=== PATIENT | male | born 1940 | race Caucasian/White ===

== ENCOUNTER 2017-01-23 02:01 | Emergency (ER) | payer MEDICARE, OTHER ==
[2017-01-23] MEDS ORDERED: ASPIRIN 81 MG TAB.CHEW ONE (02:08)
--- NOTE | 2017-01-23 02:11 | ERNOTE ---
Medical Problem HPI - General Time Seen by Provider: 01/23/17 02:08 Source: patient Exam Limitations: no limitations - Immun/Allergies/Home Medications Allergies/Adverse Reactions: Allergies iodine Allergy (Severe, Verified 01/23/17 02:16) Hives Home Medications: HOME MEDICATIONS Carvedilol [Coreg] 12.5 mg PO BID 01/16/15 [Last Taken Unknown] Digoxin [Lanoxin] 0.25 mg PO DAILY 01/16/15 [Last Taken Unknown] Lisinopril/Hydrochlorothiazide [Lisinopril-Hctz 20-12.5 mg Tab] 1 each PO DAILY 01/16/15 [Last Taken Unknown] Simvastatin [Zocor] 20 mg PO HS 01/16/15 [Last Taken Unknown] Warfarin Sodium [Coumadin] 5 mg PO DAILY 01/16/15 [Last Taken 03/12/16] Multivitamins [Multivitamin Stephanie] 1 cap PO DAILY 03/15/16 [Last Taken Unknown] Nitroglycerin [Nitrostat] 0.4 mg SL [id number] PRN 03/15/16 [Last Taken Unknown] - History of Present History Narrative: Patient presents to the emergency room via private vehicle for having had shortness of breath for the past 20 minutes. Patient states that he was sleeping and suddenly felt as if he stopped breathing. Since then he has felt short of breath. He also states that he has chest pains in the left upper chest region. He denies any radiation of this pain and he quantifies the pain as 3 out of 10. Significant history of coronary artery disease with multiple stents placed in 1997. He also has a defibrillator and states that he has not felt his defibrillator fire. Review of Systems - Review of Systems Constitutional: Present: no symptoms reported EYE: Present: no symptoms reported ENT: Present: no symptoms reported Respiratory: Present: See HPI Cardiology: Present: See HPI Gastrointestinal/Abdominal: Present: no symptoms reported Genitourinary: Present: no symptoms reported Musculoskeletal: Present: no symptoms reported Skin: Present: no symptoms reported Physical Exam - Physical Exam General Appearance: Present: wd/wn, alert, no apparent distress Ears, Nose, Throat: Present: normal ENT inspection Neck: Present: normal inspection Respiratory: Present: no respiratory distress, normal breath sounds, no accessory muscle use, chest nontender, lungs clear Cardiovascular/Chest: Present: regular rate, rhythm, no murmur, normal peripheral pulses Gastrointestinal/Abdominal: Present: normal bowel sounds, nontender, soft ED Progress - Results and Orders Patient's Lab Results:: I have reviewed the patient's lab results. - Vital Signs Patient's Vital Signs:: I have reviewed the patient's vital signs. - EKG EKG Comments: Jese moran - X-Ray X-Ray #1 X-Ray: chest Plan - Plan Plan: Patient's chest x-ray is normal, his EKG reveals atrial fibrillation, and has resolved with one nitroglycerin. He was given 325 mg of aspirin by mouth, troponin was 0.437. Pt desires to go to a facility where his heel finisher, Dr. Villarreal is. Dr. Thibodeaux at [facility], ED was consulted regarding this patient with possible NSTEMI/[place]. Patient was accepted to [facility] and he was transported via ground transportation to [facility] he remained chest pain-free and our ER and he was stable and appropriate for transfer. Departure - Departure Clinical Impression: NSTEMI (non-ST elevated myocardial infarction) Disposition: [facility] Condition: Fair Referrals: Gaudencio Aguilar DO [Primary Care Provider] -
[2017-01-23 02:27] LABS: Hematocrit 43.4 % (42.0-52.0); Hemoglobin 14.3 gm/dL (13.5-18.0); Mean Cell Volume 85.6 fl (78-100); Mean Corpuscular Hemoglobin 28.2 pg (27-31); Mean Corpuscular Hgb Conc 32.9 g/dl (32-36); Mean Platelet Volume 9.7 fl (6.0-9.5); Neutrophil # 5.2 K/mm3 (1.3-6.0); Neutrophil % 66.7 % (42-75.0); Platelet Count 307 K/mm3 (150-450); Red Blood Count 5.07 M/mm3 (4.7-6.0); Red Cell Distribution Width 15.3 % (11.5-14.0); White Blood Count 7.7 K/mm3 (4.0-10.5)
[2017-01-23 02:51] LABS: Albumin * 3.2 gm/dl (3.4-5.0); BUN/Creatinine Ratio 9.7 (9.0-21.6); Bilirubin, Total 0.4 mg/dL (0.0-1.1); CKMB 1.3 ng/mL (0.0-9.0); Ca. Corrected For Albumin 8.4 mg/dL (8.4-10.2); Calcium * 8.1 mg/dL (7.9-10.9); Carbon Dioxide 26.8 mmol/L (24-32.6); Potassium 3.8 mmol/L (3.4-4.6); Total Protein 6.4 gm/dL (6.2-8.2)
[2017-01-23 02:52] LABS: Troponin I 0.437 ng/ml (0.00-0.10)
[2017-01-23] MEDS ORDERED: CLONIDINE HCL 0.1 MG TABLET ONE (03:50)
[2017-01-23] MEDS ORDERED: CLONIDINE HCL 0.1 MG TABLET PO ONE (03:51)
[2017-01-23] MEDS ORDERED: MORPHINE SULFATE 2 MG/ML DISP.SYRIN ONE (03:58)
[2017-01-23] MEDS ORDERED: MORPHINE SULFATE 2 MG/ML DISP.SYRIN IV ONE (03:58)
[2017-01-23] MEDS ORDERED: LABETALOL HCL 5 MG/ML VIAL IV ONE ×2 (03:58→03:59)
[2017-01-23 04:08] VITALS: BP 178/90
== END 2017-01-23 04:09 | disposition short-term general hospital (02) ==
LOC: ER 02:01
DX: I21.4 Non-ST elevation (NSTEMI) myocardial infarction (principal); I25.10 Atherosclerotic heart disease of native coronary artery without angina pectoris; Z95.5 Presence of coronary angioplasty implant and graft; Z95.810 Presence of automatic (implantable) cardiac defibrillator; I48.91 Unspecified atrial fibrillation; I10 Essential (primary) hypertension; R51 Headache

== ENCOUNTER 2017-01-30 14:04 | Observation (INO) | payer MEDICARE, OTHER ==
--- NOTE | 2017-01-30 15:10 | ERNOTE ---
Medical Problem HPI - General Chief Complaint: Dizziness Time Seen by Provider: 01/30/17 14:48 Source: patient Exam Limitations: no limitations - Immun/Allergies/Home Medications Immunizations: IMMUNIZATION HX Immunizations Up to Date Yes History of Influenza Vaccine More Information Required Hx Pneumococcal Vaccination More Information Required Allergies/Adverse Reactions: Allergies iodine Allergy (Severe, Verified 01/30/17 14:16) Hives Home Medications: HOME MEDICATIONS Carvedilol [Coreg] 25 mg PO BID 01/16/15 [Last Taken 01/29/17 22:00] Simvastatin [Zocor] 20 mg PO HS 01/16/15 [Last Taken 01/29/17 22:00] Warfarin Sodium [Coumadin] 5 mg PO DAILY 01/16/15 [Last Taken 01/29/17 22:00] Multivitamins [Multivitamin Stephanie] 1 cap PO DAILY 03/15/16 [Last Taken 08:00] Nitroglycerin [Nitrostat] 0.4 mg SL [id number] PRN 03/15/16 [Last Taken 01/23/17] NIFEdipine [Nifedipine ER] 60 mg PO 01/30/17 [Last Taken 01/29/17 22:00] hydrALAZINE HCL [Hydralazine HCl] 25 mg PO DAILY PRN 01/30/17 [Last Taken 08:00] traMADol HCL [Ultram] 50 mg PO PRN PRN 01/30/17 [Last Taken 01/29/17 08:00] - History of Present History Narrative: Patient is here as he was not feeling well about an hour ago. He denies specific complaints, no chest pain, no shortness of breath, no other pain, nor nausea or vomiting. the feeling started while he was sitting down at home and has resolved now. He has a remote history of CAD with CABG and defibrillator placement. When he saw his doctor in September 2016 his blood pressure was normal. He was seen in our ER a week ago for chest pain and shortness of breath. He was found to have a blood pressure of 250 systolic and transferred to the [facility]. he reports that he was there for three days till his blood pressure was under control and that he was found to have narrowing of his blood flow to his kidneys possible related to his stent for his abdominal aortic aneurysm placed 05/2016. he has a follow up appointment scheduled later this week. He saw his PCP two days ago who started him on bumex for leg swelling. He has been fatigues and decreased energy since the hospital admission Review of Systems - Review of Systems Constitutional: Present: recent illness, weakness, fatigue. Absent: fever, chills EYE: Absent: vision changes ENT: Absent: nose congestion, sore throat Respiratory: Absent: shortness of breath Cardiology: Absent: chest pain, palpitations Gastrointestinal/Abdominal: Absent: nausea, abdominal pain Genitourinary: Present: no symptoms reported Neurological: Present: weakness - generalized. Absent: headache - Patient's Past Medical History Patient History - Medical: No pertinent hx Patient History - Cardiac/Respiratory: Atrial Fibrillation, Aneurysm, Cardiac Arrest, Coronary Heart Disease Patient History - Cancer: No Hx of Cancer Patient History - Surgical Procedures: Cardiac stent, Other Patient History - Other: None - Family History Mother Family History - Medical: , Rheumatoid Arthritis Family History - Cardiac/Respiratory: No pertinent hx Family History - Cancer: No pertinent family hx Father Family History - Medical: , No pertinent hx Family History - Cardiac/Respiratory: Myocardial Infarction Family History - Cancer: No pertinent family hx - Social History Living Situations: home Abuse History: No History of abuse Psych History: No pertinent hx Alcohol Use: none Drug Use: none - Immunizations Immunizations Up to Date: Yes Hx Pneumococcal Vaccination: More Information Required to Determine History of Influenza Vaccine: More Information Required to Determine Physical Exam - Physical Exam General Appearance: Present: wd/wn, alert, no apparent distress Eye Exam: Normal inspection: bilateral, PERRL: bilateral Ears, Nose, Throat: Present: normal ENT inspection, normal pharynx Respiratory: Present: no respiratory distress, normal breath sounds, no accessory muscle use, lungs clear Cardiovascular/Chest: Present: regular rate, rhythm, no murmur Gastrointestinal/Abdominal: Present: normal bowel sounds, nontender Extremity Exam: Present: no edema Neurological Exam: Present: alert, oriented, normal mood/affect Skin Exam: Present: normal color, warm/dry ED Progress - Results and Orders Patient's Lab Results:: I have reviewed the patient's lab results. - Vital Signs Patient's Vital Signs:: I have reviewed the patient's vital signs. Vital Signs: Vital Signs 01/30/17 01/30/17 14:12 14:50 Temperature 36.6 C Pulse Rate 74 68 Respiratory 17 17 Rate Blood Pressure 121/71 126/72 O2 Sat by Pulse 97 95 Oximetry - EKG EKG: atrial fibrillation, no ST T wave changes, unchanged from - 01/23/2017, other - poor R progression, one PVC, no acute changes EKG read: Interp. by me - Progress/Reassessment Chief Complaint: Dizziness Progress Note-Subjective: 01/30/17 15:45 discussed results with patient and family, recommended admission, patient agreed 01/30/17 15:[address] Vargas, okay to admit Departure - Departure Clinical Impression: Elevated troponin Disposition: [facility] Condition: Good
[2017-01-30 15:22] LABS: Hematocrit 45.3 % (42.0-52.0); Hemoglobin 15.1 gm/dL (13.5-18.0); Mean Cell Volume 83.9 fl (78-100); Mean Corpuscular Hgb Conc 33.3 g/dl (32-36); Mean Platelet Volume 9.7 fl (6.0-9.5); Neutrophil # 8.4 K/mm3 (1.3-6.0); Platelet Count 282 K/mm3 (150-450); Red Cell Distribution Width 15.2 % (11.5-14.0); White Blood Count 11.7 K/mm3 (4.0-10.5)
[2017-01-30 15:31] LABS: Prothrombin Time (Patient) 19.4 Seconds (9.4-11.4)
[2017-01-30 15:32] LABS: INR 1.87 INR (0.90-1.10)
[2017-01-30 15:38] LABS: Albumin * 3.6 gm/dl (3.4-5.0); Anion Gap 13.5 mmol/L (6.8-13.8); BUN/Creatinine Ratio 14.9 (9.0-21.6); Bilirubin, Total 0.9 mg/dL (0.0-1.1); Ca. Corrected For Albumin 8.8 mg/dL (8.4-10.2); Calcium * 8.8 mg/dL (7.9-10.9); Carbon Dioxide 26.5 mmol/L (24-32.6); Total Protein 7.2 gm/dL (6.2-8.2)
[2017-01-30 15:40] LABS: Troponin I 0.324 ng/ml (0.00-0.10)
[2017-01-30] MEDS ORDERED: ASPIRIN 81 MG TAB.CHEW PO ONE (15:52)
[2017-01-30] MEDS ORDERED: ASPIRIN 81 MG TAB.CHEW ONE (15:53)
--- NOTE | 2017-01-30 17:03 | HP ---
Chief Complaint - Chief Complaint Date of Service: 01/30/17 Time of Service: 17:02 Chief Complaint: Not feeling well History of Present Illness: This is a 76 year old man who came to the [facility] ER because he began to feel unwell about one hour before presentation. His complaints were very nonspecific. He denied chest pain, shortness of breath, other pain, nausea and vomiting. The sense of unwellness started while he was sitting down at home resolved by the time he reached the ER He has a remote history of CAD with CABG and defibrillator placement. When he saw his doctor in September 2016 his blood pressure was normal. He was seen in our ER a week ago for chest pain and shortness of breath. He was found then to have a blood pressure of 250 systolic and was transferred to the [facility]. He reports that he was there for three days till his blood pressure was under control. Then he was found to have narrowing of his blood flow to his kidneys, possibly related to his stent for his abdominal aortic aneurysm placed 05/2016. He has a follow up appointment for scheduled later this week. He saw his PCP two days ago, who started him on bumex for leg swelling. He has been fatigued and has had decreased energy since the recent hospital admission for high blood pressure. In the ER today he had a slightly elevated troponin. He was admitted today partially for monitoring of sequential troponins. - Patient's Past Medical History Patient History - Medical: No pertinent hx Patient History - Cardiac/Respiratory: Atrial Fibrillation, Aneurysm, Arrhythmias, Cardiac Arrest, Coronary Heart Disease, Hypertension Patient History - Cancer: Prostate Patient History - Surgical Procedures: Cholecystectomy, Cardiac stent, Hernia Repair Patient History - Other: None - Family History Mother Family History - Medical: , Rheumatoid Arthritis Family History - Cardiac/Respiratory: No pertinent hx Family History - Cancer: No pertinent family hx Father Family History - Medical: , No pertinent hx Family History - Cardiac/Respiratory: Myocardial Infarction Family History - Cancer: No pertinent family hx - Social History Living Situations: spouse Abuse History: No History of abuse Psych History: No pertinent hx Alcohol Use: none Drug Use: none - Immunizations Immunizations Up to Date: Yes Hx Pneumococcal Vaccination: More Information Required to Determine History of Influenza Vaccine: More Information Required to Determine Review Of Systems (GEN) - Review of Systems Generalized/Overall Review: Present: Malaise EENTM: Present: No Symptoms Reported Respiratory: Present: No Symptoms Reported Cardiac: Present: No Symptoms Reported Abdominal: Present: No Symptoms Reported Genitourinary: Present: No Symptoms Reported Musculoskeletal: Present: No Symptoms Reported Neurological: Present: No Symptoms Reported Skin: Present: No Symptoms Reported Endocrine: Present: No Symptoms Reported Allergies/Adverse Reactions: Allergies Allergy/AdvReac Type Severity Reaction Status Date / Time iodine Allergy Severe Hives Verified 01/30/17 14:16 Home Medications: HOME MEDICATIONS Carvedilol [Coreg] 25 mg PO BID 01/16/15 [Last Taken 01/29/17 22:00] Simvastatin [Zocor] 20 mg PO HS 01/16/15 [Last Taken 01/29/17 22:00] Warfarin Sodium [Coumadin] 5 mg PO DAILY 01/16/15 [Last Taken 01/29/17 22:00] Multivitamins [Multivitamin Stephanie] 1 cap PO DAILY 03/15/16 [Last Taken 08:00] Nitroglycerin [Nitrostat] 0.4 mg SL [id number] PRN 03/15/16 [Last Taken 01/23/17] NIFEdipine [Nifedipine ER] 60 mg PO 01/30/17 [Last Taken 01/29/17 22:00] hydrALAZINE HCL [Hydralazine HCl] 25 mg PO DAILY PRN 01/30/17 [Last Taken 08:00] traMADol HCL [Ultram] 50 mg PO PRN PRN 01/30/17 [Last Taken 01/29/17 08:00] Exam - Exam Vital Signs: Vital Signs - Last Taken Temp 36.6 C 01/30/17 14:12 Pulse 77 01/30/17 15:47 Resp 15 01/30/17 15:47 BP 132/71 01/30/17 15:47 Pulse Ox 95 01/30/17 15:47 Constitutional: Present: Alert, Oriented x3, Cooperative, Well developed, Well nourished, No distress ENT Exam: Present: normal ENT inspection, hearing grossly normal Eye Exam: bilateral eye: normal inspection, PERRL, EOMI Neck: Present: normal inspection Back Exam: Present: normal inspection Respiratory: Present: lungs clear, no respiratory distress Cardiovascular/Chest: Present: regular rate, rhythm, no murmur Abdomen: Present: Normal bowel sounds, soft, nontender, nondistended, no rebound tenderness, no hepatospenomegaly, no masses Extremity: Present: normal inspection, no pedal edema Skin Exam: Present: normal color, warm/dry, no cyanosis Neurologic: Present: alert, oriented x 3 Appearance: Present: appropriate appearance, appropriate insight, neat, no memory impairment Eye contact: Present: cooperative, good eye contact, normal speech Thoughts: Present: normal thought pattern Diagnostic Studies: Laboratory Results WBC 11.7 K/mm3 (4.0-10.5) H 01/30/17 15:15 RBC 5.40 M/mm3 (4.7-6.0) 01/30/17 15:15 Hgb 15.1 gm/dL (13.5-18.0) 01/30/17 15:15 Hct 45.3 % (42.0-52.0) 01/30/17 15:15 MCV 83.9 fl (78-100) 01/30/17 15:15 MCH 28.0 pg (27-31) 01/30/17 15:15 MCHC 33.3 g/dl (32-36) 01/30/17 15:15 RDW 15.2 % (11.5-14.0) H 01/30/17 15:15 Plt Count 282 K/mm3 (150-450) 01/30/17 15:15 MPV 9.7 fl (6.0-9.5) H 01/30/17 15:15 Immature Gran % (Auto) 1.00 % (0.001-0.429) H 01/30/17 15:15 Immature Gran # (Auto) 0.12 K/mm3 (0.000-0.0310) H 01/30/17 15:15 Neutrophils % 72.0 % (42-75.0) 01/30/17 15:15 Lymphocytes % 14.8 % (20-51) L 01/30/17 15:15 Monocytes % 8.7 % (0.0-9) 01/30/17 15:15 Eosinophils % 3.0 % (0.0-3.0) 01/30/17 15:15 Basophils % 0.5 % (0.0-1.0) 01/30/17 15:15 Nucleated RBC % 0.0 k/mm3 (0-1) 01/30/17 15:15 Neutrophils # 8.4 K/mm3 (1.3-6.0) H 01/30/17 15:15 Lymphocytes # 1.7 k/mm3 (1.5-3.5) 01/30/17 15:15 Monocytes # 1.0 k/mm3 (0.0-1.0) 01/30/17 15:15 Eosinophils # 0.4 k/mm3 (0.0-0.7) 01/30/17 15:15 Absolute Basophils 0.1 k/mm3 (0.0-0.1) 01/30/17 15:15 PT 19.4 Seconds (9.4-11.4) H 01/30/17 15:15 INR (Anticoag Therapy) 1.87 INR (0.90-1.10) H 01/30/17 15:15 Sodium 134 mmol/L (132-142) 01/30/17 15:15 Plasma Sodium 135 mmol/L (130-142) 01/30/17 15:15 Potassium 4.0 mmol/L (3.4-4.6) 01/30/17 15:15 Chloride 98 mmol/L (97-106) 01/30/17 15:15 Carbon Dioxide 26.5 mmol/L (24-32.6) 01/30/17 15:15 Anion Gap 13.5 mmol/L (6.8-13.8) 01/30/17 15:15 BUN 27 mg/dL (6-23) H 01/30/17 15:15 Creatinine 1.81 mg/dL (0.4-1.4) H 01/30/17 15:15 Est GFR (Non-Af Amer) 39 mL/min (60-130) L 01/30/17 15:15 BUN/Creatinine Ratio 14.9 (9.0-21.6) 01/30/17 15:15 Random Glucose 152 mg/dL (70-110) H 01/30/17 15:15 Calcium 8.8 mg/dL (7.9-10.9) 01/30/17 15:15 Calcium Adj for Albumin 8.8 mg/dL (8.4-10.2) 01/30/17 15:15 Total Bilirubin 0.9 mg/dL (0.0-1.1) 01/30/17 15:15 AST 21 U/L (0-48) 01/30/17 15:15 ALT 38 U/L (19-67) 01/30/17 15:15 Alkaline Phosphatase 41 U/L (50-170) L 01/30/17 15:15 Troponin I 0.324 ng/ml (0.00-0.10) H* 01/30/17 15:15 Total Protein 7.2 gm/dL (6.2-8.2) 01/30/17 15:15 Albumin 3.6 gm/dl (3.4-5.0) 01/30/17 15:15 Assessment/Plan - Narrative Narrative: monitor sequential troponins. possibly home tomorrow. - Assessment/Plan (1) Malaise Problem: Acute (2) Elevated troponin Problem: Acute (3) CAD (coronary artery disease) Problem: Acute
[2017-01-30] MEDS ORDERED: NITROGLYCERIN 0.4 MG/TAB BTL SL PRN (17:10)
[2017-01-30] MEDS ORDERED: hydrALAZINE HCL 25 MG TABLET PO PRN (17:10)
[2017-01-30] MEDS ORDERED: traMADol HCL 50 MG TABLET PO PRN (17:10)
[2017-01-30] MEDS ORDERED: ACETAMINOPHEN 325 MG TABLET PO PRN (17:11)
[2017-01-30] MEDS ORDERED: WARFARIN SODIUM 5 MG TABLET PO SCH (18:00)
[2017-01-30] MEDS: CARVEDILOL 25 MG TABLET PO SCH (20:09)
[2017-01-30] MEDS ORDERED: SIMVASTATIN 20 MG TABLET PO SCH (21:00)
[2017-01-31 04:45] LABS: Prothrombin Time (Patient) 20.9 Seconds (9.4-11.4)
[2017-01-31 04:48] LABS: INR 2.01 INR (0.90-1.10)
[2017-01-31] MEDS: CARVEDILOL 25 MG TABLET PO SCH (08:41)
[2017-01-31] MEDS ORDERED: MULTIVITAMINS 1 CAP CAPSULE PO SCH (09:00)
--- NOTE | 2017-01-31 09:44 | DS ---
(1) Malaise Problem: Acute (2) Elevated troponin Problem: Acute (3) CAD (coronary artery disease) Problem: Acute Description of Stay: Stable in hospital. Troponins also stable. Procedures Performed: none Discharge Disposition: Home self care Disposition: Home self-care Condition: Good Discharge Diet: General/regular food Problem Oriented Discharge Instructions to Patient/Family: Chest Pain Observation Additional Patient Instructions (free text): Keep your already planned followup appointments Complete Home Medications List: Complete Home Medication List: Carvedilol [Coreg] 25 mg PO BID 01/16/15 Simvastatin [Zocor] 20 mg PO HS 01/16/15 Warfarin Sodium [Coumadin] 5 mg PO DAILY 01/16/15 Multivitamins [Multivitamin Stephanie] 1 cap PO DAILY 03/15/16 Nitroglycerin [Nitrostat] 0.4 mg SL [id number] PRN 03/15/16 NIFEdipine [Nifedipine ER] 60 mg PO 01/30/17 hydrALAZINE HCL [Hydralazine HCl] 25 mg PO DAILY PRN 01/30/17 traMADol HCL [Ultram] 50 mg PO PRN PRN 01/30/17 Acetaminophen [Tylenol] 650 mg PO QID PRN #0 tablet 01/31/17
[2017-01-31 10:08] VITALS: BP 159/68
== END 2017-01-31 10:21 | disposition home or self-care (01) ==
LOC: ER 14:04 → MS 16:15
PROVIDERS: ADMIT Allergy & Immunology; ATTEND Allergy & Immunology
DX: I48.91 Unspecified atrial fibrillation (principal); R53.81 Other malaise; I25.10 Atherosclerotic heart disease of native coronary artery without angina pectoris; I10 Essential (primary) hypertension; I71.4 Abdominal aortic aneurysm, without rupture
CPT/HCPCS: 36415; 80053; 84484; 85025; 85610; 93005; 99284; G0378

== ENCOUNTER 2017-06-02 09:39 | Observation (INO) | payer MEDICARE, OTHER ==
[2017-06-02] MEDS ORDERED: NORMAL SALINE 1,000 ML IV ONE (10:14)
--- NOTE | 2017-06-02 10:40 | ERNOTE ---
Dizziness ER Record Date of Service: 06/02/17 Presenting Symptoms: dizziness Time Seen by Provider: 06/02/17 09:59 Source: patient Exam Limitations: no limitations Immunizations: IMMUNIZATION HX Immunizations Up to Date Yes History of Influenza Vaccine More Information Required Hx Pneumococcal Vaccination More Information Required Allergies/Adverse Reactions: Allergies Allergy/AdvReac Type Severity Reaction Status Date / Time iodine Allergy Severe Hives Verified 06/02/17 16:42 Home Medications: HOME MEDICATIONS Carvedilol [Coreg] 50 mg PO BID 01/16/15 [Last Taken 01/29/17 22:00] Simvastatin [Zocor] 20 mg PO HS 01/16/15 [Last Taken 01/29/17 22:00] Warfarin Sodium [Coumadin] 5 mg PO SUTUWETHSA 01/16/15 [Last Taken 01/29/17 22: 00] Multivitamins [Multivitamin Stephanie] 1 cap PO DAILY 03/15/16 [Last Taken 08:00] Warfarin Sodium 7.5 mg PO MOFR 05/13/17 [Last Taken Unknown] Acetaminophen [Tylenol] 500 mg PO QID PRN 06/02/17 [Last Taken Unknown] Nitroglycerin 0.4 mg SL PRN PRN 06/02/17 [Last Taken Unknown] - History of Present Illness Narrative: Pt. comes in with c/o dizziness, since 0200this morning. Pt. has a hx of high blood pressure and states that this dizziness has occurred previously when his blood pressure has been elevated. Pt. denies any recent illness, room spinning , fever, SOB, CP, NVD, but does state that it is associated with R temporal headache. Pt. has a hx of a fib and NSTEMI in the past. Review of Systems - Review of Systems Constitutional: Present: no symptoms reported. Absent: recent illness, fever, chills, weakness, fatigue, malaise EYE: Present: no symptoms reported ENT: Present: no symptoms reported Respiratory: Present: no symptoms reported. Absent: shortness of breath, cough , wheezing Cardiology: Present: no symptoms reported. Absent: chest pain, palpitations, edema Gastrointestinal/Abdominal: Present: no symptoms reported. Absent: nausea, vomiting, diarrhea, abdominal pain Genitourinary: Present: no symptoms reported Musculoskeletal: Present: no symptoms reported. Absent: back pain, joint pain Skin: Present: no symptoms reported Neurological: Present: headache, dizziness/light-headedness. Absent: anxiety, depressed, numbness, tingling Endocrine: Present: no symptoms reported Hematologic/Lymphatic: Present: no symptoms reported Psych: Present: no symptoms reported All Other Systems: All systems neg except as marked - Patient's Past Medical History Patient History - Medical: No pertinent hx Patient History - Cardiac/Respiratory: Atrial Fibrillation, Aneurysm, Cardiac Arrest, Coronary Heart Disease Patient History - Cancer: No Hx of Cancer Patient History - Surgical Procedures: Cardiac stent, Other Patient History - Other: None - Family History Mother Family History - Medical: , Rheumatoid Arthritis Family History - Cardiac/Respiratory: No pertinent hx Family History - Cancer: No pertinent family hx Father Family History - Medical: , No pertinent hx Family History - Cardiac/Respiratory: Myocardial Infarction Family History - Cancer: No pertinent family hx - Social History Living Situations: home Abuse History: No History of abuse Psych History: No pertinent hx - Immunizations Immunizations Up to Date: Yes Hx Pneumococcal Vaccination: More Information Required to Determine History of Influenza Vaccine: More Information Required to Determine Physical Exam - Physical Exam General Appearance: Present: wd/wn, alert, no apparent distress Head Exam: Present: normal inspection, no evidence of injury Eye Exam: Normal inspection: bilateral, PERRL: bilateral, EOMI: bilateral Ears, Nose, Throat: Present: normal ENT inspection, normal pharynx Neck: Present: normal inspection, nontender. Absent: lymphadenopathy (R), lymphadenopathy (L) Respiratory: Present: no respiratory distress, normal breath sounds, no accessory muscle use, chest nontender, lungs clear Cardiovascular/Chest: Present: regular rate, rhythm, no murmur, normal peripheral pulses Gastrointestinal/Abdominal: Present: normal bowel sounds, nontender, nondistended, soft, no organomegaly Back Exam: Present: normal inspection, normal range of motion, no CVA tenderness , no vertebral tenderness Extremity Exam: Present: normal inspection Neurological Exam: Present: alert, oriented, normal mood/affect, no motor/ sensory deficits, 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 with positive rhomberg and very unsteady with standing. Pt. [id number] and HINTS exam negative. Absent: normal cerebellar test Skin Exam: Present: normal color, warm/dry. Absent: pallor, skin rash ED Progress - Date and Time Seen: Date and Time: 06/02/17 11:38 Discussed with Pt. recenterer Dr Villarreal and she recommends treating blood pressure and not worrying about troponin. 06/02/17 15:[address] Aguilar and he recommends admitting to the [facility] for observation and denies any further recommendations or concerns. - Results and Orders Patient's Lab Results:: I have reviewed the patient's lab results. - Vital Signs Patient's Vital Signs:: I have reviewed the patient's vital signs. Vital Signs: Vital Signs 06/02/17 06/02/17 10:10 10:13 Temperature 35.6 C L Pulse Rate 74 71 Respiratory 17 Rate Blood Pressure 192/106 O2 Sat by Pulse 98 Oximetry - EKG EKG: atrial fibrillation, atrial flutter EKG read: Reviewed by me EKG Comments: Interp by Dr Tejeda no acute - X-Ray X-Ray #1 X-Ray: chest Interpretation: Reviewed by me X-ray Comments: Cardiomegaly, no acute process - CT/Ultrasound CT/Ultrasound Narrative: Head CT without any acute abnormality other than ethmoid sinus inflammatiion. - Progress/Reassessment Chief Complaint: Dizziness Progress:: Improved Departure Clinical Impression: Hypertensive emergency, Elevated troponin, Dizziness - Departure Disposition: [facility] Condition: Critical
[2017-06-02 10:46] LABS: Hematocrit 41.9 % (42.0-52.0); Hemoglobin 13.6 gm/dL (13.5-18.0); Mean Cell Volume 81.2 fl (78-100); Mean Corpuscular Hemoglobin 26.4 pg (27-31); Mean Corpuscular Hgb Conc 32.5 g/dl (32-36); Mean Platelet Volume 10.1 fl (6.0-9.5); Neutrophil # 5.3 K/mm3 (1.3-6.0); Neutrophil % 68.7 % (42-75.0); Platelet Count 299 K/mm3 (150-450); Red Blood Count 5.16 M/mm3 (4.7-6.0); Red Cell Distribution Width 15.3 % (11.5-14.0); White Blood Count 7.7 K/mm3 (4.0-10.5)
[2017-06-02 10:58] LABS: Anion Gap 13.5 mmol/L (6.8-13.8); BUN/Creatinine Ratio 10.6 (9.0-21.6); Bilirubin, Total 0.7 mg/dL (0.0-1.1); Ca. Corrected For Albumin 9.2 mg/dL (8.4-10.2); Calcium * 8.7 mg/dL (7.9-10.9); Carbon Dioxide 25.5 mmol/L (24-32.6); Total Protein 6.5 gm/dL (6.2-8.2)
[2017-06-02 10:59] LABS: Troponin I 0.169 ng/ml (0.00-0.10)
[2017-06-02 11:50] LABS: Urine Bilirubin Negative (NEGATIVE); Urine Blood Negative /ul (NEGATIVE); Urine Ketone Negative (NEGATIVE); Urine Nitrite Negative (NEGATIVE); Urine Protein 100 mg/dL (NEGATIVE); Urine Specific Gravity 1.025 SP.GR. (1.005-1.030); Urine Urobilinogen Normal (NORMAL); Urine pH 6.5 pH (5.0-7.0)
[2017-06-02 11:57] LABS: Urine Appearance Clear; Urine Bacteria None Seen; Urine Color Yellow; Urine RBC None Seen /hpf (0-5); Urine WBC None Seen /hpf (0-5)
[2017-06-02] MEDS ORDERED: MECLIZINE HCL 25 MG TABLET PO ONE (12:18)
[2017-06-02] MEDS ORDERED: hydrALAZINE HCL 20 MG/ML VIAL ONE (13:08)
[2017-06-02] MEDS ORDERED: hydrALAZINE HCL 20 MG/ML VIAL IV ONE ×2 (13:09→13:43)
[2017-06-02] MEDS ORDERED: NITROPRUSSIDE SODIUM 50 MG in DEXTROSE 5 % IN WATER 500 ML IV PRN ×2 (14:31)
[2017-06-02] MEDS ORDERED: NORMAL SALINE IV PRN (14:45)
[2017-06-02] MEDS ORDERED: NITROPRUSSIDE SODIUM IV PRN ×5 (14:45→15:15)
[2017-06-02] MEDS ORDERED: WATER IV PRN ×4 (14:45→15:15)
[2017-06-02] MEDS ORDERED: DEXTROSE 5% IV PRN ×4 (14:45→15:15)
--- NOTE | 2017-06-02 16:38 | HP ---
Chief Complaint - Chief Complaint Date of Service: 06/02/17 Time of Service: 16:37 Chief Complaint: Headache, elevated blood pressure History of Present Illness: Tripp is a 76 yo male with hx of CAD, HTN who presents to the [facility] ER today for headache and a blood pressure of 190/110 at home. He reports headaches daily for the last couple weeks. He reports bilateral foot pain later in the day. He reports no recent change in his diet, medications, or activity. He has followed with Dr. Villarreal in cardiology. He is currently taking Coreg 50mg BID, simvastatin 20mg HS, and Coumadin 5mg PM. He reports a month ago he was checking his blood pressure and it was 130/80 consistently so he stopped checking. He has not checked his blood pressure at home until today. In the ER he continued to have blood pressure near 190/110 with headache and an elevated creatinine. He was determined to be having a hypertensive emergency and started on nitro drip. - Patient's Past Medical History Patient History - Medical: No pertinent hx Patient History - Cardiac/Respiratory: Atrial Fibrillation, Aneurysm, Cardiac Arrest, Coronary Heart Disease Patient History - Cancer: No Hx of Cancer Patient History - Surgical Procedures: Cardiac stent, Other Patient History - Other: None - Family History Mother Family History - Medical: , Rheumatoid Arthritis Family History - Cardiac/Respiratory: No pertinent hx Family History - Cancer: No pertinent family hx Father Family History - Medical: , No pertinent hx Family History - Cardiac/Respiratory: Myocardial Infarction Family History - Cancer: No pertinent family hx Sisters Family History - Medical: , No pertinent hx Family History - Cardiac/Respiratory: No pertinent hx Family History - Cancer: Breast, Lung, Melanoma, Other - Social History Living Situations: home Abuse History: No History of abuse Psych History: No pertinent hx Smoking Status: Former smoker Alcohol Use: none Drug Use: none - Immunizations Immunizations Up to Date: Yes Hx Pneumococcal Vaccination: More Information Required to Determine History of Influenza Vaccine: More Information Required to Determine Review Of Systems (GEN) - Review of Systems Generalized/Overall Review: Present: No Symptoms Reported EENTM: Present: No Symptoms Reported Respiratory: Present: No Symptoms Reported Cardiac: Present: No Symptoms Reported Abdominal: Present: No Symptoms Reported Genitourinary: Present: No Symptoms Reported Musculoskeletal: Present: Other - Bilateral plantar foot pain, worse later in the day Neurological: Present: Headache, Depressed - Increased stress about son working in the intermediate Skin: Present: No Symptoms Reported Endocrine: Present: No Symptoms Reported Immunizations: IMMUNIZATION HX Immunizations Up to Date Yes History of Influenza Vaccine More Information Required Hx Pneumococcal Vaccination More Information Required Allergies/Adverse Reactions: Allergies Allergy/AdvReac Type Severity Reaction Status Date / Time iodine Allergy Severe Hives Verified 06/02/17 16:42 Home Medications: HOME MEDICATIONS Carvedilol [Coreg] 50 mg PO BID 01/16/15 [Last Taken 01/29/17 22:00] Simvastatin [Zocor] 20 mg PO HS 01/16/15 [Last Taken 06/01/17] Warfarin Sodium [Coumadin] 5 mg PO SUTUWETHSA 01/16/15 [Last Taken 06/01/17] Multivitamins [Multivitamin Stephanie] 1 cap PO DAILY 03/15/16 [Last Taken 08:00] Warfarin Sodium 7.5 mg PO MOFR 05/13/17 [Last Taken 05/30/17] Acetaminophen [Tylenol] 500 mg PO QID PRN 06/02/17 [Last Taken 06/01/17] Exam - Exam Vital Signs: Vital Signs - Last Taken Temp 36.2 C L 06/02/17 16:00 Pulse 84 06/02/17 16:00 Resp 12 06/02/17 16:00 BP 154/100 06/02/17 16:00 Pulse Ox 98 06/02/17 16:00 Constitutional: Present: Alert, Oriented x3, Cooperative ENT Exam: Present: hearing grossly normal Eye Exam: bilateral eye: normal inspection Respiratory: Present: lungs clear, normal breath sounds Cardiovascular/Chest: Present: regular rate, rhythm, no murmur Abdomen: Present: Normal bowel sounds, soft, nontender, nondistended Extremity: Present: lower extremity edema - 1+ Skin Exam: Present: normal color, warm/dry, no cyanosis Appearance: Present: appropriate appearance, appropriate insight Eye contact: Present: cooperative, good eye contact, normal speech Thoughts: Present: normal thought pattern, no apparent hallucination Diagnostic Studies: Laboratory Results WBC 7.7 K/mm3 (4.0-10.5) 06/02/17 10:30 RBC 5.16 M/mm3 (4.7-6.0) 06/02/17 10:30 Hgb 13.6 gm/dL (13.5-18.0) 06/02/17 10:30 Hct 41.9 % (42.0-52.0) L 06/02/17 10:30 MCV 81.2 fl (78-100) 06/02/17 10:30 MCH 26.4 pg (27-31) L 06/02/17 10:30 MCHC 32.5 g/dl (32-36) 06/02/17 10:30 RDW 15.3 % (11.5-14.0) H 06/02/17 10:30 Plt Count 299 K/mm3 (150-450) 06/02/17 10:30 MPV 10.1 fl (6.0-9.5) H 06/02/17 10:30 Immature Gran % (Auto) 1.20 % (0.001-0.429) H 06/02/17 10:30 Immature Gran # (Auto) 0.09 K/mm3 (0.000-0.0310) H 06/02/17 10:30 Neutrophils % 68.7 % (42-75.0) 06/02/17 10:30 Lymphocytes % 16.2 % (20-51) L 06/02/17 10:30 Monocytes % 10.2 % (0.0-9) H 06/02/17 10:30 Eosinophils % 3.4 % (0.0-3.0) H 06/02/17 10:30 Basophils % 0.3 % (0.0-1.0) 06/02/17 10:30 Nucleated RBC % 0.0 k/mm3 (0-1) 06/02/17 10:30 Neutrophils # 5.3 K/mm3 (1.3-6.0) 06/02/17 10:30 Lymphocytes # 1.2 k/mm3 (1.5-3.5) L 06/02/17 10:30 Monocytes # 0.8 k/mm3 (0.0-1.0) 06/02/17 10:30 Eosinophils # 0.3 k/mm3 (0.0-0.7) 06/02/17 10:30 Absolute Basophils 0.0 k/mm3 (0.0-0.1) 06/02/17 10:30 Sodium 139 mmol/L (132-142) 06/02/17 10:30 Plasma Sodium 139 mmol/L (130-142) 06/02/17 10:30 Potassium 4.0 mmol/L (3.4-4.6) 06/02/17 10:30 Chloride 104 mmol/L (97-106) 06/02/17 10:30 Carbon Dioxide 25.5 mmol/L (24-32.6) 06/02/17 10:30 Anion Gap 13.5 mmol/L (6.8-13.8) 06/02/17 10:30 BUN 18 mg/dL (6-23) 06/02/17 10:30 Creatinine 1.70 mg/dL (0.4-1.4) H 06/02/17 10:30 Est GFR (Non-Af Amer) 42 mL/min (60-130) L 06/02/17 10:30 BUN/Creatinine Ratio 10.6 (9.0-21.6) 06/02/17 10:30 Random Glucose 116 mg/dL (70-110) H 06/02/17 10:30 Calcium 8.7 mg/dL (7.9-10.9) 06/02/17 10:30 Calcium Adj for Albumin 9.2 mg/dL (8.4-10.2) 06/02/17 10:30 Total Bilirubin 0.7 mg/dL (0.0-1.1) 06/02/17 10:30 AST 12 U/L (0-48) 06/02/17 10:30 ALT 16 U/L (19-67) L 06/02/17 10:30 Alkaline Phosphatase 40 U/L (50-170) L 06/02/17 10:30 Troponin I 0.169 ng/ml (0.00-0.10) H* 06/02/17 10:30 B-Natriuretic Peptide 3754 pg/mL (5-650) H 06/02/17 10:30 Total Protein 6.5 gm/dL (6.2-8.2) 06/02/17 10:30 Albumin 3.0 gm/dl (3.4-5.0) L 06/02/17 10:30 Urine Color Yellow 06/02/17 11:45 Urine Appearance Clear 06/02/17 11:45 Urine pH 6.5 pH (5.0-7.0) 06/02/17 11:45 Ur Specific [place] 1.025 SP.GR. (1.005-1.030) 06/02/17 11:45 Urine Protein 100 mg/dL (NEGATIVE) H 06/02/17 11:45 Urine Glucose (UA) Negative mg/dL (NEGATIVE) 06/02/17 11:45 Urine Ketones Negative mg/dL (NEGATIVE) 06/02/17 11:45 Urine Blood Negative /ul (NEGATIVE) 06/02/17 11:45 Urine Nitrate Negative (NEGATIVE) 06/02/17 11:45 Urine Bilirubin Negative mg/dl (NEGATIVE) 06/02/17 11:45 Prot Sulfosalicylic Acd 4+ mg/dL (0) H 06/02/17 11:45 Urine Urobilinogen Normal EU/dl (NORMAL) 06/02/17 11:45 Ur Leukocyte Esterase Negative /ul (NEGATIVE) 06/02/17 11:45 Urine RBC None seen /hpf (0-5) 06/02/17 11:45 Urine WBC None seen /hpf (0-5) 06/02/17 11:45 Ur Epithelial Cells None seen /hpf (0-5) 06/02/17 11:45 Urine Bacteria None seen (NONE) 06/02/17 11:45 Urine Culture Comments No culture indicated 06/02/17 11:45 Assessment/Plan - Assessment/Plan (1) Hypertensive emergency Assessment: Will continue nitro drip. Will add hydralazine 25mg q8hr PO. Will titrate off nitro drip to keep SBP<180 and DBP<120. No known etiology. It is possible that stress is related. Will discuss SSRI vs SNRI. Will trend troponin. Mildly elevated, but history of CAD and this is near his baseline. He is not eating salt and no NSAIDs. Will admit to observation. Expect to titrate off nitro drip tonight, switch over to oral medications, and if stable discharge to home tomorrow. Problem: Acute (2) Accelerated hypertension Problem: Acute
[2017-06-02] MEDS ORDERED: WARFARIN SODIUM 5 MG TABLET PO SCH (17:00)
[2017-06-02] MEDS ORDERED: FLU VACC QS2017-18(6MOS UP)/PF 60 MCG/0.5 ML SYRINGE IM ONE (17:10)
[2017-06-02 17:16] LABS: Prothrombin Time (Patient) 29.4 Seconds (9.0-11.0)
[2017-06-02 17:21] LABS: INR 2.91 INR (0.90-1.10)
[2017-06-02] MEDS: hydrALAZINE HCL 25 MG TABLET PO SCH ×2 (17:22→23:45)
[2017-06-02] MEDS: ACETAMINOPHEN 325 MG TABLET PO PRN (18:38)
[2017-06-02] MEDS ORDERED: SIMVASTATIN 20 MG TABLET PO SCH (21:00)
[2017-06-02] MEDS: CARVEDILOL 25 MG TABLET PO SCH (23:25)
[2017-06-03] MEDS: hydrALAZINE HCL 25 MG TABLET PO SCH (07:58)
[2017-06-03] MEDS: CARVEDILOL 25 MG TABLET PO SCH (08:16)
[2017-06-03 08:22] LABS: Hematocrit 41.3 % (42.0-52.0); Hemoglobin 13.4 gm/dL (13.5-18.0); Mean Corpuscular Hemoglobin 26.3 pg (27-31); Mean Corpuscular Hgb Conc 32.4 g/dl (32-36); Mean Platelet Volume 9.8 fl (6.0-9.5); Neutrophil # 5.7 K/mm3 (1.3-6.0); Neutrophil % 78.1 % (42-75.0); Platelet Count 294 K/mm3 (150-450); Red Cell Distribution Width 15.6 % (11.5-14.0); White Blood Count 7.4 K/mm3 (4.0-10.5)
[2017-06-03 08:44] LABS: Albumin * 2.9 gm/dl (3.4-5.0); Bilirubin, Total 0.9 mg/dL (0.0-1.1); Calcium * 8.4 mg/dL (7.9-10.9); Carbon Dioxide 23.9 mmol/L (24-32.6); Potassium 3.9 mmol/L (3.4-4.6); TSH * 0.534 uIU/mL (0.358-3.74); Total Protein 6.2 gm/dL (6.2-8.2)
[2017-06-03] MEDS ORDERED: hydrALAZINE HCL 25 MG TABLET PO ONE (08:45)
[2017-06-03] MEDS ORDERED: MULTIVITAMINS 1 CAP CAPSULE PO SCH (09:00)
[2017-06-03] MEDS: ACETAMINOPHEN 325 MG TABLET PO PRN (09:18)
[2017-06-03 10:09] LABS: Prothrombin Time (Patient) 29.6 Seconds (9.0-11.0)
[2017-06-03 10:10] LABS: INR 2.93 INR (0.90-1.10)
--- NOTE | 2017-06-03 12:58 | DS ---
(1) Hypertensive emergency Problem: Acute (2) Accelerated hypertension Problem: Acute Description of Stay: Tripp is a 76 yo male that was admitted with accelerated hyptension. Blood pressure in the ER was >180 systolic. He was placed on a nitro drip in the ER and admitted to the [facility] for maintenance of blood pressure. With nitro drip pressure did drop below 180. He was started on hydralazine 50mg TID and nitro drip was titrated off to keep Systolic <180. Pressures remained controlled and nitro was titrated off. Blood pressure remained slightly elevated but stable. He will be discharged to home with hydralazine and follow up in clinic in a week for recheck. Investigation for elevated blood pressure only revealed stress as a possible precipitating cause. He has been experiencing a lot of anxiety due to his son being at risk for harm at his job at the [employer]. He declines antidepressant/anti-anxiety medication at this time. Procedures Performed: none Discharge Disposition: Home self care Disposition: Home self-care Condition: Good Discharge Activity: Activity as tolerated Discharge Diet: Low salt Referrals: Gaudencio Aguilar DO [Primary Care Provider] - One Week (Any day next week) Problem Oriented Discharge Instructions to Patient/Family: Hypertension, Easy- to-Read Additional Patient Instructions (free text): Follow up with Dr. Aguilar on 06/08/17 @ 2:00 p.m. Prescriptions (Any new or edited meds): hydrALAZINE HCL [Apresoline] 50 mg PO Q8H #90 tablet Complete Home Medications List: Complete Home Medication List: Carvedilol [Coreg] 50 mg PO BID 01/16/15 Simvastatin [Zocor] 20 mg PO HS 01/16/15 Warfarin Sodium [Coumadin] 5 mg PO SUTUWETHSA 01/16/15 Multivitamins [Multivitamin Stephanie] 1 cap PO DAILY 03/15/16 Warfarin Sodium 7.5 mg PO MOFR 05/13/17 Acetaminophen [Tylenol] 500 mg PO QID PRN 06/02/17 hydrALAZINE HCL [Apresoline] 50 mg PO Q8H #90 tablet 06/03/17
[2017-06-03 13:23] VITALS: BP 157/90
[2017-06-03] MEDS ORDERED: WARFARIN SODIUM 7.5 MG TABLET PO SCH (17:00)
[2017-06-03] MEDS ORDERED: hydrALAZINE HCL 50 MG TABLET PO SCH (17:00)
== END 2017-06-03 14:00 | disposition home or self-care (01) ==
LOC: ER 09:39 → MS 15:12 → UNDOADMOB 15:12 → SCU 15:12 → MS 06-03 08:50
PROVIDERS: ADMIT Family Medicine; ATTEND Family Medicine
DX: I16.1 Hypertensive emergency (principal); I48.2 Chronic atrial fibrillation; Z79.01 Long term (current) use of anticoagulants; F41.9 Anxiety disorder, unspecified; I25.10 Atherosclerotic heart disease of native coronary artery without angina pectoris; I10 Essential (primary) hypertension
CPT/HCPCS: 36415; 70450; 71010; 80053; 81001; 83880; 84443; 84484; 85025; 85610; 93005; 96365; 96375; 96376; 99285; G0378